=== PATIENT | male | born 1970 | race Caucasian/White ===

== ENCOUNTER 2017-12-11 05:23 | Day surgery (SDC) | payer OTHER ==
[~2017-12-11] VITALS: Ht 170.2 cm; Wt 78.9 kg
--- NOTE | ~2017-12-11 | O ---
[facility] [place] [address] OPERATIVE REPORT Name: CRYS HERNANDEZ Room #: DEP [facility].#: [id number] Admission: 12/11/17 Attend Phys: Vimal Sanchez MD Discharge: 12/11/17 Date of : 68 Report #: [id number] THIS REPORT FOR: //name// CC: Dr. Vito Sanchez ____ ____ DATE OF SERVICE: 12/11/2017 SURGEON: Vimal Sanchez MD CITIZEN PARTICIPATION SPECIALIST: None. PREOPERATIVE DIAGNOSIS: Bilateral upper lid dermatochalasia with superior visual field defect. POSTOPERATIVE DIAGNOSIS: Bilateral upper lid dermatochalasia with superior visual field defect. OPERATION PERFORMED: Bilateral upper lid functional blepharoplasty. ANESTHESIA: Local with IV sedation. COMPLICATIONS: None. INDICATIONS FOR SURGERY: This patient has acquired upper lid dermatochalasia with superior visual field loss both eyes because of excessive upper lid tissues to include skin and fat. Visual field testing demonstrates dense superior visual defects. Retesting with the upper lid elevated shows an improvement in visual field loss of over 30% and in excess of 12 degrees. The current procedures are undertaken in order to improve the patient's visual function. Informed consent was obtained to include but not limited to the loss of vision, bleeding, infection, scarring, failure to improve the problem and need for further surgery. DESCRIPTION OF OPERATION: The patient was taken to the operating room, where 2% Xylocaine with epinephrine mixed with equal parts of 0.75% Marcaine with Wydase was administered transcutaneously to each upper lid. The patient was then prepped and draped in the usual sterile fashion and a skin-marking pen was then utilized to outline an upper lid crease that was symmetrical on each side. Graefe forceps were then used to quantitate the redundant upper lid skin and it was similarly outlined. The incisions were then made with Annie scissors and a skin-muscle flap removed from each side with high-temp cautery. [address] [address] OPERATIVE REPORT Name: CRYS HERNANDEZ Room #: DEP [facility].#: [id number] Admission: 12/11/17 Attend Phys: Vimal Sanchez MD Discharge: 12/11/17 Date of : 68 Report #: [id number] was achieved with the monopolar cautery as it was throughout the case. The orbital septum was then identified and the central and medial fat pads were inspected. The redundant soft tissue was then sculpted with the monopolar cautery. The upper lid crease was then reformed with tightening of the pretarsal orbicularis muscle. The upper lid crease was then further reformed with multiple interrupted 6-0 chromic sutures. The skin was then closed with a running 6-0 plain gut suture. The wound was then cleaned and dressed with ophthalmic antibiotic ointment and a nonstick dressing. The patient was transported to the recovery area, where cold compresses were applied, having tolerated the procedure well with no anesthetic or operative complications being noted. <ELECTRONICALLY SIGNED> By: Vimal Sanchez MD 12/18/17 0614 1459 1525 Vimal Sanchez MD /nt
[~2017-12-11 05:23] MED LIST: ASPIR 8181 MG PO; ASPIRIN325 PO; COLACE CLEAR50 MG PO; LIPITOR80 MG PO; METOPROLOL SUCC50 MG PO; NEURONTIN600 MG PO; NORCO 10-325 T1 EACH PO; OMEPRAZOLE40 MG PO; PLAVIX 75 MG TA75 M1 PO; PRILOSEC PO; SYNTHROID88 MCG PO; VITAMIN B-121000 MC3 PO; VITAMIN D1000 UNI2 PO
[2017-12-11 13:03] VITALS: BP 119/87
== END 2017-12-11 15:40 | disposition home or self-care (01) ==
LOC: TBA 05:23 → OR 05:23
DX: H02.834 Dermatochalasis of left upper eyelid (principal); H02.831 Dermatochalasis of right upper eyelid; H53.462 Homonymous bilateral field defects, left side; H53.461 Homonymous bilateral field defects, right side; I10 Essential (primary) hypertension; I25.2 Old myocardial infarction; G47.33 Obstructive sleep apnea (adult) (pediatric); E78.5 Hyperlipidemia, unspecified; K21.9 Gastro-esophageal reflux disease without esophagitis; F17.210 Nicotine dependence, cigarettes, uncomplicated; Z98.890 Other specified postprocedural states; Z95.5 Presence of coronary angioplasty implant and graft; Z87.442 Personal history of urinary calculi; Z79.899 Other long term (current) drug therapy; Z79.82 Long term (current) use of aspirin; Z79.891 Long term (current) use of opiate analgesic
CPT/HCPCS: 50010; 50101; 50386; 50398; 51636; 56531; 62110; 62850; 70005

== ENCOUNTER 2021-05-03 14:43 | Inpatient (IN) | payer OTHER ==
[~2021-05-03] VITALS: Ht 170.2 cm; Wt 84.4 kg
[2021-05-03 14:44] VITALS: BP 116/79
[2021-05-03 15:18] LABS: ABSOLUTE NEUTROPHILS 7.2 thou/uL (1.4-8.2); BASOPHILS 0.6 % (0.0-2.0); EOSINOPHILS 0.8 % (0.0-3.0); HEMATOCRIT 41.3 % (42.0-52.0); HEMOGLOBIN 13.7 gm/dL (14.0-18.0); LYMPHOCYTES 19.3 % (24.0-44.0); MCH 29.7 pg (26.0-34.0); MCHC 33.2 g/dL (28.0-37.0); MCV 89.6 fL (80.0-100.0); MONOCYTES 5.9 % (1.0-8.0); PLATELET COUNT 274 thou/uL (150-400); POLYS 73.4 % (36.0-66.0); RBC 4.61 mil/uL (4.50-6.00); RDW 15.4 % (10.5-14.5); WBC 9.9 thou/uL (4.0-11.0)
[2021-05-03 15:34] LABS: ANION GAP 14 mmol/L (7-16); BUN 13 mg/dL (7-18); CALCIUM 8.5 mg/dL (8.5-10.1); CHLORIDE 105 mmol/L (98-107); CO2 22 mmol/L (21-32); CREATININE 0.8 mg/dL (0.7-1.3); GLUCOSE 93 mg/dL (74-106); POTASSIUM 4.2 mmol/L (3.5-5.1); SODIUM 141 mmol/L (136-145)
[2021-05-03 15:44] LABS: ALBUMIN 3.7 g/dL (3.4-5.0); SGOT 20 U/L (15-37); SGPT 26 U/L (30-65); TOTAL BILIRUBIN 0.4 mg/dL (0.2-1.0); TOTAL PROTEIN 6.4 g/dL (6.4-8.2); TROPONIN-I <0.06 ng/mL (<0.06)
[2021-05-03 18:15] VITALS: BP 137/101
[2021-05-03 18:30] VITALS: BP 122/80
[2021-05-03 19:05] VITALS: BP 119/75
[2021-05-04] VITALS (12 sets, daily range): BP systolic 92–1119; BP diastolic 60–88
--- NOTE | 2021-05-04 01:44 | NUR ---
ASSESSMENTS CHARTED, MEDS CHARTED GIVEN. PATIENT ARRIVED FROM ED DURING THE 30 MINUTES WINDOW WHEN WE ARE NOT TO RECEIVE PATIENTS. PATIENT WAS SETTLED INTO ROOM AND INITIAL ADMISSION ASSESSMENT WAS DONE AND MEDS WERE STARTED. REMAINDER OF ADMISSION ASSESSMENT WAS FINISHED AFTER EVERYONES INITIAL MEDS HAD BEEN PASSED. FALL PRECAUTIONS IN PLACE DURING SHIFT. 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 NPO SINCE MIDNIGHT.
[2021-05-04 05:20] LABS: ALBUMIN 3.3 g/dL (3.4-5.0); ANION GAP 10 mmol/L (7-16); BUN 13 mg/dL (7-18); CALCIUM 7.8 mg/dL (8.5-10.1); CHLORIDE 108 mmol/L (98-107); CO2 24 mmol/L (21-32); CREATININE 0.9 mg/dL (0.7-1.3); GLUCOSE 114 mg/dL (74-106); PHOSPHORUS 3.7 mg/dL (2.5-4.9); POTASSIUM 3.9 mmol/L (3.5-5.1); SODIUM 142 mmol/L (136-145); TROPONIN-I <0.06 ng/mL (<0.06)
--- NOTE | 2021-05-04 07:38 | EKG ---
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 : 1970 Requested By: Salma Aragon Order Number: [id number] MD: Chris Duron Measurements Intervals [place] Rate: 63 P: 6 MD: 199 QRS: -15 QRSD: 109 T: 86 QT: 396 QTc: 406 Interpretive Statements Sinus rhythm Borderline left axis deviation Abnormal R-wave progression, early transition Minimal ST depression, lateral leads Compared to ECG 03/26/2011 01:25:59 ST (T wave) deviation now present Sinus bradycardia no longer present Left ventricular hypertrophy no longer present Electronically Signed On 05-04-2021 7:38:43 CDT by Chris Duron [email or web address] <ELECTRONICALLY SIGNED> By: Chris Duron MD, FAC 05/04/21 0738 1453 1453 Chris Duron MD, [facility] /EPI
--- NOTE | 2021-05-04 14:47 | CATHLAB ---
[facility] [address] [address] INVASIVE PROCEDURE REPORT Name: HERNANDEZCRYS Room #: 200-I ADM IN .R.#: [id number] Admission: 05/03/21 Attend Phys: Xi Mayberry Discharge: Date of : 68 Report #: [id number] THIS REPORT FOR: cc: Jennifer Gardner MD, Marivic MD Park, Jin S. MD ~ APPROVED REPORT Study performed: 05/04/2021 11:58:32 Patient Details Patient Status: In-Patient Room #: 200 The patient is a 50 year-old male Event Personnel Jovan Ashton Accounts Administrator, Jacqueline Montero RTR Monitor, Grady Frausto RN RN, Jelly Mabry RTR, DAVID Scrub, Jaiden Garner RTR Projector Operator Procedures Performed Art Access - R femoral artery* Left Heart Cath w/or w/o Coronaries [id number] [facility] Place w/wo Plasty Single OM [id number] Hemostasis w/ Mynx 94842 Initial Mod Sed Same Phys/QHP Gr5y 990649 06388 Mod Sed Same Phys/QHP Ea 464303 Indication Dyspnea, Unstable angina , Chest pain Risk Factors Hypercholesterolemia, Coronary Artery DiseaseHypertension Previous Procedures/Diagnoses Previous PCI, Previous [place] Procedure Narrative The Right Groin^ was infiltrated with 1% Lidocaine subcutaneous anesthesia. A PINNACLE 4FR Sheath #[id number] sheath was inserted into the RFA^. Coronary angiography was performed using coronary diagnostic catheters. The right coronary system was accessed and visualized with a JR4 catheter. The left coronary system was accessed and visualized with a JL4 catheter. The left ventricle was accessed and visualized with a PIGTAIL catheter. Left ventriculogram was performed in 30 degree projection. Pre-demployment femoral angiogram was performed . Closure device was deployed with a Fr MYNXGRIP 6/7F [facility] [employer] [place] [address] INVASIVE PROCEDURE REPORT Name: CRYS HERNANDEZ Room #: 200-I [facility] IN [facility].#: [id number] Admission: 05/03/21 Attend Phys: Xi Cox Discharge: Date of : 68 Report #: [id number]. The patient tolerated the procedure well and there were no complications associated with the procedure. There was no hematoma. Intraoperative Conscious Sedation Sedation start time: 12:30 Case end Time: 13:22 Fentanyl 50 mcg Versed 1 mg Fluoro Time: 8.60 minutes Dose: DAP 70805.90 cGycm2 2237 mGy Contrast Type and Amount: Omnipaque 175 ml Coronary Angiography The patient's coronary anatomy is left dominant. Diagnostic Cath Left Main The left main artery is a large-caliber vessel, appears angiographically normal. LAD The LAD is a moderate-sized caliber vessel, traverses the anterior wall and wraps around the apex. The apical LAD terminates in the mid/distal inferior wall. There are multiple overlapping stents, beginning from the proximal LAD segment and extending throughout the entire mid segment of the LAD. There is mild diffuse restenosis, 20%. Diagonal 1 This is a small caliber vessel, patent with no flow-limiting lesions. Circumflex The left circumflex artery is a moderate-sized caliber vessel, dominant as it supplies the left PDA. This vessel is patent with no flow-limiting lesions. OM1 This is a moderate-sized caliber vessel with a patent stent in the proximal segment. Just before the stent, there is a severe stenosis of 70%. OM2 This is a small to moderate-sized caliber vessel, patent with no flow-limiting lesions. OM3 This is a moderate-sized caliber vessel, patent with no flow-limiting lesions. L PDA There is a stent in the proximal segment, patent with mild restenosis. Right Coronary The RCA is a small, nondominant vessel. Left Ventriculography The left ventricle is mildly dilated in size with Diminished contractility. The left ventricular ejection fraction is estimated to be 35%. Left ventricular wall motion abnormalities are present. There is hypokinesis of the mid anterior, anterolateral and mid inferior [address] [address] INVASIVE PROCEDURE REPORT Name: CRYS HERNANDEZ Room #: 200-I [facility] IN .R.#: [id number] Admission: 05/03/21 Attend Phys: Xi Cox Discharge: Date of : 68 Report #: [id number] segments. Hemodynamics The aortic pressure is 110/71 mmHg with a mean of 87 mmHg. The left ventricular pressure is 114/10 mmHg with a mean of mmHg. The left ventricular end diastolic pressure is 15 mmHg. PCI Technique Lesion Percutaneous coronary intervention was performed on the first obtuse marginal branch segment. The lesion stenosis prior to intervention was 70% with BRIAN 3 flow. A VISTA 6FR XB 3.5 #[id number] Guide Catheter was used to engage the ostium. A Luge Wire .014 x 182CM #[id number] Interventional Guidewire was used to cross the lesion. BALLOON DILATION A Balloon catheter TREK RX 2.25 X 8 was inserted and inflated up to 6.00atm for 10seconds. Additional Inflation: 12.00atm for 17seconds. Additional Inflation: 12.00atm for 12seconds. STENT DEPLOYMENT A drug-eluting stent RESOLUTE GEORGINA RX 2.5 X 12 #[id number] was inserted and inflated up to 16.00atm for 32seconds. Final angiography reveals 0 % stenosis with BRIAN 3 flow. Conclusion 1. Successful insertion of a drug-eluting stent into the ostial/proximal segment of the first obtuse marginal artery. 2. There are patent overlapping stents in the proximal/mid segment of the LAD with mild restenosis. 3. There are patent stents in the first OM and left PDA branch vessels. 4. There is moderately severe ischemic cardiomyopathy. 5. Recommend dual antiplatelet therapy and guideline directed medical therapy. <ELECTRONICALLY SIGNED> By: Jovan Ashton MD 05/04/21 1447 1447 144 Jovan Ashton MD /INF
[2021-05-05 00:45] VITALS: BP 100/70
--- NOTE | 2021-05-05 03:22 | NUR ---
ASSESSMENTS CHARTED, MEDS CHARTED GIVEN. 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 MINXX CLOSURE C/D/I. UP AT SIMON IN ROOM, SB ON TELEMETRY. PATIENT SLEEPING MOST OF SHIFT. FALL PRECAUTIONS IN PLACE DURING SHIFT.
[2021-05-05 04:45] VITALS: BP 117/71
[2021-05-05 04:52] LABS: ALBUMIN 3.5 g/dL (3.4-5.0); CALCIUM 8.2 mg/dL (8.5-10.1); CREATININE 0.9 mg/dL (0.7-1.3); POTASSIUM 3.8 mmol/L (3.5-5.1); TOTAL BILIRUBIN 0.2 mg/dL (0.2-1.0); TOTAL PROTEIN 6.4 g/dL (6.4-8.2)
[2021-05-05 05:09] LABS: HEMOGLOBIN 13.6 gm/dL (14.0-18.0); MCH 29.6 pg (26.0-34.0); MCHC 33.1 g/dL (28.0-37.0); MCV 89.4 fL (80.0-100.0); RBC 4.59 mil/uL (4.50-6.00); RDW 15.3 % (10.5-14.5); WBC 9.3 thou/uL (4.0-11.0)
--- NOTE | 2021-05-05 07:36 | EKG ---
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 : 1970 Requested By: Jovan Ashton Order Number: [id number] MD: Chris Duron Measurements Intervals [place] Rate: 53 P: 18 [place]: 217 QRS: -15 QRSD: 110 T: 103 QT: 416 QTc: 391 Interpretive Statements Sinus rhythm Prolonged KS interval Borderline left axis deviation Abnormal R-wave progression, early transition Borderline repolarization abnormality Compared to ECG 05/03/2021 14:53:13 First degree AV block now present ST (T wave) deviation no longer present Electronically Signed On 05-05-2021 7:36:08 CDT by Chris Duron [email or web address] <ELECTRONICALLY SIGNED> By: Chris Duron MD, FAC 05/05/21 0736 1749 1749 Chris Duron MD, [facility] /EPI
[2021-05-05 08:09] VITALS: BP 105/60
[2021-05-05] MEDS ORDERED: CARVEDILOL3.125 MG PO (10:06)
[2021-05-05] MEDS ORDERED: EFFIENT10 MG PO (10:06)
[2021-05-05] MEDS ORDERED: ASPIRIN EC81 M1 PO (10:08)
[2021-05-05 11:40] VITALS: BP 105/60
[2021-05-05 13:08] VITALS: BP 105/60
== END 2021-05-05 13:02 | disposition home or self-care (01) | DRG 246 ==
LOC: ER 14:43 → 2N 17:32 → EROBS 17:32 → 2N 18:42
PROVIDERS: Emergency Medicine; Internal Medicine Cardiovascular Disease; ADMIT Hospitalist; ATTEND Hospitalist
PROC: 027034Z Dilation of Coronary Artery, One Artery with Drug-eluting Intraluminal Device, Percutaneous Approach (ICD-10-PCS; principal; 2021-05-04)
PROC: 4A023N7 Measurement of Cardiac Sampling and Pressure, Left Heart, Percutaneous Approach (ICD-10-PCS; principal; 2021-05-04)
PROC: B41F1ZZ Fluoroscopy of Right Lower Extremity Arteries using Low Osmolar Contrast (ICD-10-PCS; principal; 2021-05-04)
PROC: B2151ZZ Fluoroscopy of Left Heart using Low Osmolar Contrast (ICD-10-PCS; principal; 2021-05-04)
PROC: B2111ZZ Fluoroscopy of Multiple Coronary Arteries using Low Osmolar Contrast (ICD-10-PCS; principal; 2021-05-04)
DX: I25.110 Atherosclerotic heart disease of native coronary artery with unstable angina pectoris (principal); I50.21 Acute systolic (congestive) heart failure; T82.855A Stenosis of coronary artery stent, initial encounter; Y83.8 Other surgical procedures as the cause of abnormal reaction of the patient, or of later complication, without mention of misadventure at the time of the procedure; M19.90 Unspecified osteoarthritis, unspecified site; E78.5 Hyperlipidemia, unspecified; K21.9 Gastro-esophageal reflux disease without esophagitis; E03.9 Hypothyroidism, unspecified; E78.00 Pure hypercholesterolemia, unspecified; G89.29 Other chronic pain; F17.210 Nicotine dependence, cigarettes, uncomplicated; G58.8 Other specified mononeuropathies; M54.5 Low back pain; Y92.89 Other specified places as the place of occurrence of the external cause; Z95.5 Presence of coronary angioplasty implant and graft; Z87.442 Personal history of urinary calculi; Z79.82 Long term (current) use of aspirin; Z79.899 Other long term (current) drug therapy
CPT/HCPCS: 10081

== ENCOUNTER 2021-11-17 14:10 | Emergency (ER) | payer OTHER ==
[~2021-11-17] VITALS: Ht 170.2 cm; Wt 81.7 kg
[~2021-11-17 14:10] MED LIST changes: +ASPIRIN EC81 M1 PO; +CARVEDILOL3.125 MG PO; +EFFIENT10 MG PO
[2021-11-17 14:46] LABS: HEMATOCRIT 43.1 % (42.0-52.0); HEMOGLOBIN 13.9 gm/dL (14.0-18.0); MCH 28.8 pg (26.0-34.0); MCHC 32.2 g/dL (28.0-37.0); MCV 89.3 fL (80.0-100.0); RBC 4.83 mil/uL (4.50-6.00); RDW 15.8 % (10.5-14.5); WBC 7.9 thou/uL (4.0-11.0)
[2021-11-17 14:58] LABS: CALCIUM 8.5 mg/dL (8.5-10.1)
[2021-11-17 15:04] LABS: POTASSIUM 4.2 mmol/L (3.5-5.1)
[2021-11-17] MEDS ORDERED: LISINOPRIL5 MG PO (15:05)
[2021-11-17] MEDS ORDERED: SYNTHROID100 MC1 PO (15:05)
[2021-11-17] MEDS ORDERED: CRESTOR40 MG PO (15:06)
[2021-11-17 15:07] LABS: ALBUMIN 3.7 g/dL (3.4-5.0); TOTAL BILIRUBIN 0.3 mg/dL (0.2-1.0); TOTAL PROTEIN 6.6 g/dL (6.4-8.2)
[2021-11-17] MEDS ORDERED: CARVEDILOL6.25 M1 PO (15:07)
[2021-11-17] MEDS ORDERED: VITAMIN D350 MC3 PO (15:08)
[2021-11-17] MEDS ORDERED: JARDIANCE25 MG PO (15:08)
[2021-11-17] MEDS ORDERED: SPIRONOLACTONE25 MG PO (15:08)
[2021-11-17 17:45] VITALS: BP 118/72
--- NOTE | 2021-11-18 07:58 | EKG ---
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1970 Requested By: Kalee Malloy Order Number: [id number] MD: Chris Duron Measurements Intervals [place] Rate: 71 P: -4 [place]: 192 QRS: -14 QRSD: 107 T: 83 QT: 369 QTc: 401 Interpretive Statements Sinus rhythm Abnormal R-wave progression, early transition Nonspecific T abnormalities, lateral leads Compared to ECG 05/04/2021 17:49:59 T-wave abnormality now present First degree AV block no longer present Electronically Signed On 11-18-2021 7:58:52 ASSESSMENT TECHNICIAN by Chris Duron [email or web address] <ELECTRONICALLY SIGNED> By: Chris Duron MD, [facility] 11/18/21 0758 1412 141 Chris Duron MD, [facility] /EPI
== END 2021-11-17 17:47 | disposition home or self-care (01) ==
LOC: ER 14:10
PROVIDERS: Student in an Organized Health Care Education/Training Program
DX: R07.89 Other chest pain (principal); E78.5 Hyperlipidemia, unspecified; I10 Essential (primary) hypertension; K21.9 Gastro-esophageal reflux disease without esophagitis; E03.9 Hypothyroidism, unspecified; I25.2 Old myocardial infarction; Z98.890 Other specified postprocedural states; Z79.82 Long term (current) use of aspirin; Z79.891 Long term (current) use of opiate analgesic; Z79.899 Other long term (current) drug therapy